=== PATIENT | female | born 1950 | race Caucasian/White ===

== ENCOUNTER 2024-08-20 08:43 | Outpatient (CLI) | payer MEDICARE, SELFPAY ==
--- NOTE | ~2024-08-20 | MR_ITS ---
EXAMINATION: MR foot LT wo con DATE: 08/20/2024 09:27 INDICATION: Left foot pain. Nonhealing stress fracture. TECHNIQUE: Magnetic resonance imaging (MRI) of the left fore/mid foot was performed without intraveno us contrast. Sequences included sagittal T1-weighted FSE, sagittal fluid sensitive FSE STIR, coronal PD-weighted FS FSE, coronal T1-weighted FSE, axial PD-weighted FS FSE, and axial PD-weighted FSE. COMPARISON: None FINDINGS: Bone alignment is normal. No fracture, stress reaction or pathologic marrow replacing process. Mild p olyarticular osteoarthritis at the first metatarsophalangeal and a few tarsal metatarsal and interpha langeal joints. Small T2 hyperintense likely either degenerative subarticular cyst or erosion at the plantar base of the fifth proximal phalanx. Additional small likely periarticular erosion at the dors al head of the second metatarsal. The Lisfranc ligament complex and the collateral ligament complex a t the metatarsophalangeal and interphalangeal joints are normal. The visualized portions of the flexo r and extensor tendons are normal. There is mild fatty atrophy and increased fluid signal in the intr insic musculature of the forefoot. Mild subcutaneous edema at the dorsum of the foreign midfoot and e xtending along the lateral aspect of the visualized hindfoot. Physiologic amount fluid in the joint s paces. No bursitis, tenosynovitis or other abnormal fluid collections. IMPRESSION: 1. No stress fracture/stress reaction. 2. Mild polyarticular osteoarthritis in the mid and forefoot with a couple possible small erosions at the head of the second metatarsal and base of the fifth metatarsal which raises the possibility of a superimposed inflammatory arthritis or crystalline arthropathy such as gout. 3. Mild fatty atrophy and edema of the musculature of the forefoot which could be seen in the setting of chronic denervation change such as diabetic neuropathy. Reviewed, dictated and finalized at location A. [employer] IMPRESSION: 1. No stress fracture/stress reaction. 2. Mild polyarticular osteoarthritis in the mid and forefoot with a couple poss ible small erosions at the head of the second metatarsal and base of the fifth metatarsal which raises the possibility of a superimposed inflammatory arthriti s or crystalline arthropathy such as gout. 3. Mild fatty atrophy and edema of the musculature of the forefoot which could be seen in the setting of chronic denervation change such as diabetic neuropath y.
== END 2024-08-20 08:44 | disposition home or self-care (01) ==
PROVIDERS: PCP Family Medicine; Visit Provider Podiatrist Foot & Ankle Surgery
DX: M19.072 Primary osteoarthritis, left ankle and foot (principal); M62.571 Muscle wasting and atrophy, not elsewhere classified, right ankle and foot
CPT/HCPCS: 73718